=== PATIENT | male | born 1995 | race Caucasian/White ===

== ENCOUNTER 2019-05-01 23:39 | Emergency (ER) | payer OTHER ==
[2019-05-01 23:49] VITALS: BMI 39.0
--- NOTE | 2019-05-02 00:37 | PDOC ---
History of Present Illness - General Chief Complaint: Pain, Acute Stated Complaint: ABD PAIN Time Seen by Provider: 05/02/19 00:36 - History of Present Illness Initial Comments: The pt is a 24M w/ a history of GERD who presents for evaluation of LUQ abdominal pain since 1600 today. The pain started after eating a blackberry cake (that others had but do not share his symptoms). The pain is cramping/ burning, non-radiating, expanding, waxing/waning, associated with his reflux type symptoms, and was not alleviated by water. He tried taking Miralax today w / little relief. He feels better sitting rather than laying. He endorses associated nausea, diarrhea, streaks of blood in his stool. Denies fevers/chills, WALDRON, vision changes, chest pain, trouble breathing, dysuria , hematuria. Denies previous sexual activity PMH: GERD PSH: Denies Meds: Denies SH: Denies x3 05/02/19 00:46 Past History - Past Medical History Allergies/Adverse Reactions: Allergies Allergy/AdvReac Type Severity Reaction Status Date / Time No Known Allergies Allergy Verified 05/01/19 23:43 Home Medications: Ambulatory Orders Omeprazole 20 mg PO DAILY #15 tab 05/02/19 COPD: No - Suicide/Smoking/Psychosocial Hx Smoking History: Never smoked Have you smoked in the past 12 months: No Information on smoking cessation initiated: No Hx Alcohol Use: No Drug/Substance Use Hx: No Review of Systems - Review of Systems Able to Perform ROS?: Yes Comments:: GENERAL/CONSTITUTIONAL: No fever or chills. No weakness HEAD, EYES, EARS, NOSE AND THROAT: No change in vision. No ear pain or discharge. No sore throat CARDIOVASCULAR: No chest pain or shortness of breath RESPIRATORY: Denies cough, hemoptysi GASTROINTESTINAL: No vomiting, constipation GENITOURINARY: No dysuria, frequency, or change in urination MUSCULOSKELETAL: No joint or muscle swelling or pain. No neck pain SKIN: No rash NEUROLOGIC: No headache, vertigo, loss of consciousness, or change in strength/ sensation ENDOCRINE: No increased thirst. No abnormal weight change HEMATOLOGIC/LYMPHATIC: No anemia, easy bleeding, or history of blood clots ALLERGIC/IMMUNOLOGIC: No hives or skin allergy 05/02/19 00:37 Is the patient limited Tamazight proficient: No *Physical Exam - Vital Signs Last Vital Signs Temp Pulse Resp BP Pulse Ox 98.3 F 103 H 20 129/74 97 05/01/19 23:43 05/01/19 23:43 05/01/19 23:43 05/01/19 23:43 05/01/19 23:43 - Physical Exam Comments: GENERAL: Awake, alert, and oriented to person/place/time, in no acute distress HEAD: No signs of trauma, normocephalic, atraumatic EYES: PERRLA, EOMI, sclera anicteric, conjunctiva clear ENT: Hearing grossly normal, nares patent, oropharynx clear without exudates. No uvular deviation. Moist mucosa LUNGS: No distress, speaks in full sentences, clear to auscultation bilaterally HEART: Regular rate and rhythm, normal S1 and S2, no murmurs appreciated, peripheral pulses normal and equal bilaterally ABDOMEN: Soft, protuberant, LUQ TTP/lower abdominal TTP w/o rebound or guarding , normoactive bowel sounds EXTREMITIES: Normal inspection, Normal range of motion, no edema. No clubbing or cyanosis NEUROLOGICAL: Cranial nerves II through XII grossly intact. Normal speech, normal gait, no focal sensorimotor deficits SKIN: Warm, Dry, normal turgor, no rashes or lesions noted 05/02/19 00:37 ED Treatment Course - LABORATORY CBC & Chemistry Diagram: 05/02/19 01:14 05/02/19 02:09 Medical Decision Making - Medical Decision Making The pt is a 24M w/ a history of GERD who presents for evaluation of LUQ abdominal pain since 1600 today. Ddx includes PUD, GERD, consider nephrolithaisis, biliary disease, not likely vascular or cardiac in nature, not likely obstruction No anemia Lytes wnl LFTs unremarkable No F[place]ON Lipase wnl GI cocktail 05/02/19 03:22 US w/o evidence of cholelithiasis or cholecysititis Symptoms likely 2/2 gastritis v GERD v PUD Rx for omeprazole sent to pharmacy Pt tolerating PO and w/ resolution of abd pain Plan for D/C w/ GI f/u Discharge instructions and return precautions given Pt in agreement and verbalized understanding Dispo: home *DC/Admit/Observation/Transfer Diagnosis at time of Disposition: Abdominal pain Qualifiers: Abdominal location: epigastric Qualified Code(s): R10.13 - Epigastric pain Nausea and vomiting Qualifiers: Vomiting type: unspecified Vomiting Intractability: non-intractable Qualified Code(s): R11.2 - Nausea with vomiting, unspecified - Discharge Dispostion Disposition: HOME Condition at time of disposition: Improved Decision to Admit order: No - Prescriptions Prescriptions: Omeprazole 20 mg PO DAILY #15 tab.rap.dr - Referrals Referrals: Raman Jacobo MD [Primary Care Provider] - Isaac Bruce DO [Staff Physician] - - Patient Instructions Printed Discharge Instructions: DI for Gastroesophageal Reflux Disease (GERD) Additional Instructions: You were seen in the Emergency Department for evaluation of abdominal pain with nausea and vomiting. Your labs were unremarkable and your bedside ultrasound was negative for gallstones. A prescription for omeprazole was sent to the pharmacy that you specified, take as directed. Follow up with your primary care provider and the gastroenterology referral provided. Review the handout provided at discharge. Return to the Emergency Department if you develop fevers/ chills, chest pain, trouble breathing, inability to tolerate food, worsening pain, worsening symptoms, or any new/concerning symptoms. - Post Discharge Activity Forms/Work/School Notes: Back to Work
[2019-05-02] MEDS ORDERED: MAG HYDROX/AL HYDROX/SIMETH 30 ML UNIT-DOSE CUP PO ONE (00:44)
[2019-05-02] MEDS ORDERED: LACTATED RINGERS SOLUTION 1000 ML INFUS.BAG IV ONE (00:44)
[2019-05-02] MEDS ORDERED: ONDANSETRON 4 MG/2 ML VIAL IVPUSH ONE (00:44)
[2019-05-02] MEDS ORDERED: FAMOTIDINE 20 MG/50 ML IVPB 20 MG/50 ML MG IVPB ONE ×2 (00:44→01:03)
[2019-05-02] MEDS ORDERED: ACETAMINOPHEN 1000 MG/100 ML VIAL (NON FORMULARY) IVPB ONE (00:46)
[2019-05-02] MEDS ORDERED: MAG HYDROX/AL HYDROX/SIMETH 30 ML UNIT-DOSE CUP ONE (01:02)
[2019-05-02] MEDS ORDERED: ONDANSETRON 4 MG/2 ML VIAL ONE (01:04)
[2019-05-02] MEDS ORDERED: ACETAMINOPHEN INJECTION 100 ML IVPB ONE (01:14)
--- NOTE | 2019-05-02 01:18 | PDOC ---
Documentation entered by Indira Muro SCRIBE, acting as scribe for Katina Sheridan DO. Katina Sheridan DO: This documentation has been prepared by the Jina gomez Xhesika, SCRIBE, under my direction and personally reviewed by me in its entirety. I confirm that the documentation accurately reflects all work, treatment, procedures, and medical decision making performed by me. Attending Attestation - Resident Resident Name: [email or web address] - ED Attending Attestation I have performed the following: I have examined & evaluated the patient, The case was reviewed & discussed with the resident, I agree w/resident's findings & plan, Exceptions are as noted - HPI HPI: 05/02/19 01:19 The patient is a 24 year old male, with a significant PMH of GERD who presents to the emergency department with LUQ abdominal pain since 4pm. The patient states he was eating blackberry cake at the sudden onset of his abdominal pain which is described as cramping and burning sensation and is associated with his GERD symptoms. The patient states he drank water and took Miralax with mild to no relief. The patient states he endorses nausea, vomiting and diarrhea, secondary to his symptoms. The patient states his symptoms are aggravated when lying down and alleviated when sitting up. The patient denies chest pain, shortness of breath, headache and dizziness. Denies fever, chills, and constipation. Denies dysuria, frequency, urgency and hematuria. Allergies: NKA PCP: Raman Beltran - Physicial Exam PE: 05/02/19 01:20 GENERAL: Awake, alert, and fully oriented, in no acute distress HEAD: No signs of trauma EYES: PERRLA, EOMI, sclera anicteric, conjunctiva clear ENT: Auricles normal inspection, hearing grossly normal, nares patent, oropharynx clear without exudates. Moist mucosa NECK: Normal ROM, supple, no lymphadenopathy, JVD, or masses LUNGS: Breath sounds equal, clear to auscultation bilaterally. No wheezes, and no crackles HEART: Regular rate and rhythm, normal S1 and S2, no murmurs, rubs or gallops ABDOMEN: (+) epigastric tenderness. (+) LUQ tenderness. Soft, nontender, normoactive bowel sounds. No guarding, no rebound. No masses EXTREMITIES: Normal range of motion, no edema. No clubbing or cyanosis. No cords , erythema, or tenderness NEUROLOGICAL: Cranial nerves II through XII grossly intact. Normal speech, normal gait SKIN: Warm, Dry, normal turgor, no rashes or lesions noted. - Medical Decision Making 05/02/19 01:14 I, Dr. Katina Sheridan, DO, attest that this document has been prepared under my direction and personally reviewed by me in its entirety. I further attest, that it accurately reflects all work, treatment, procedures and medical decision -making performed by me. 05/02/19 01:14 a/p: 24yo male with n/v today and epigastric abd pain -had n/v in the ED and the pain resolved -burning sensation to chest and sour taste in mouth -hx of acid reflux, used to take omeprazole -bedside ultrasound of the RUQ-no gb wall thickening, no pericholecystic fluid, no gallstones, neg sonographic murphyx -bedside renal ultrasound - no hydro -will send labs, lipase, will medicate with gi meds -pt states after vomiting pain is almost totally resolved -will monitor and reassess 05/02/19 02:10 mildly elevated wbc chem hemolyzed, will repeat
[2019-05-02 01:33] LABS: BASO % 0.6 % (0-2.0); EOS % 0.8 % (0-4.5); HEMOGLOBIN 15.2 GM/dL (11.7-16.9); LYMPH % 11.7 % (8-40); MCH 26.6 pg (25.7-33.7); MCHC 32.4 g/dl (32.0-35.9); MEAN CELL VOLUME 82.2 fl (80-96); MEAN PLT VOLUME 8.6 fl (7.5-11.1); MONO % 7.4 % (3.8-10.2); NEUT % 79.5 % (42.8-82.8); PLATELET COUNT 280 K/MM3 (134-434); RBC 5.72 M/mm3 (4.00-5.60); RDW 14.7 % (11.9-15.9); WHITE BLOOD COUNT 13.5 K/mm3 (4.0-10.0)
[2019-05-02 02:15] LABS: URINE APPEARANCE CLEAR; URINE BILIRUBIN NEGATIVE (NEGATIVE); URINE COLOR YELLOW; URINE GLUCOSE (UA) NEGATIVE (NEGATIVE); URINE KETONE NEGATIVE (NEGATIVE); URINE LEUK ESTERASE NEGATIVE (NEGATIVE); URINE NITRITE NEGATIVE (NEGATIVE); URINE PROTEIN NEGATIVE (NEGATIVE)
[2019-05-02 02:50] LABS: ALBUMIN 3.9 g/dl (3.4-5.0); BILIRUBIN,TOTAL 0.7 mg/dL (0.2-1); BLOOD UREA NITROGEN 11.1 mg/dL (7-18); CALCIUM 8.4 mg/dL (8.5-10.1); CREATININE 0.8 mg/dL (0.55-1.3); POTASSIUM 3.5 mmol/L (3.5-5.1); TOT PROT 7.2 g/dl (6.4-8.2)
[2019-05-02 04:15] VITALS: BP 124/74; PULSE 81; TEMP 98.6
== END 2019-05-02 04:28 | disposition home or self-care (01) ==
LOC: JER 23:39
PROC: 3E033NZ Introduction of Analgesics, Hypnotics, Sedatives into Peripheral Vein, Percutaneous Approach (ICD-10-PCS; principal; 2019-05-01)
PROC: 3E033GC Introduction of Other Therapeutic Substance into Peripheral Vein, Percutaneous Approach (ICD-10-PCS; 2019-05-01)
PROC: 3E0337Z Introduction of Electrolytic and Water Balance Substance into Peripheral Vein, Percutaneous Approach (ICD-10-PCS; 2019-05-01)
DX: R10.13 Epigastric pain (principal); R11.2 Nausea with vomiting, unspecified
CPT/HCPCS: 36415; 80053; 81003; 83690; 85025; 99282-25; J0131

== ENCOUNTER 2024-04-06 10:29 | Emergency (ER) | payer SELFPAY ==
[2024-04-06 10:46] VITALS: TEMP 98.7; BMI 39.3
[2024-04-06 11:28] LABS: BASO % 0.9 % (0-2.0); EOS % 1.5 % (0-4.5); HEMATOCRIT 44.6 % (35.4-49); HEMOGLOBIN 14.8 GM/dL (11.7-16.9); LYMPH % 19.9 % (8-40); MCH 26.6 pg (25.7-33.7); MCHC 33.2 g/dl (32.0-35.9); MEAN CELL VOLUME 80.2 fl (80-96); MONO % 7.6 % (3.8-10.2); NEUT % 70.1 % (42.8-82.8); PLATELET COUNT 311 10^3/uL (134-434); RBC 5.57 M/mm3 (4.00-5.60); RDW 14.7 % (11.9-15.9); WHITE BLOOD COUNT 11.8 K/mm3 (4.0-10.0)
[2024-04-06 11:34] LABS: PROTHROMBIN TIME (PATIENT) 11.5 SEC (9.7-13.0)
[2024-04-06 11:37] LABS: ACTIVATED PTT 33.8 SECONDS (25.2-36.5)
[2024-04-06 11:46] LABS: CHLORIDE 104 mmol/L (98-107); POTASSIUM 3.9 mmol/L (3.5-5.1); SODIUM 138 mmol/L (136-145)
[2024-04-06 11:48] LABS: ANION GAP 7 mmol/L (4-13); CALCIUM 9.5 mg/dL (8.5-10.1); CO2 27 mmol/L (21-32); GLUCOSE,RANDOM 127 mg/dL (74-106)
[2024-04-06 11:49] LABS: BLOOD UREA NITROGEN 18.1 mg/dL (7-18)
[2024-04-06 11:51] LABS: SGPT/ALT 30 U/L (13-61)
[2024-04-06 11:52] LABS: SGOT/AST 29 U/L (15-37)
[2024-04-06 11:53] LABS: BILIRUBIN,TOTAL 0.5 mg/dL (0.2-1); TOT PROT 7.7 g/dl (6.4-8.2)
[2024-04-06 11:54] LABS: ALK PHOS 70 U/L (45-117)
[2024-04-06 14:21] VITALS: RESP 20
[2024-04-06 16:15] VITALS: BP 143/68; PULSE 89
== END 2024-04-06 16:15 | disposition home or self-care (01) ==
LOC: JER 10:29
DX: R07.9 Chest pain, unspecified (principal); R00.0 Tachycardia, unspecified; R11.0 Nausea; R42 Dizziness and giddiness; Z20.822 Contact with and (suspected) exposure to COVID-19
CPT/HCPCS: 0241U-QW; 36415; 71045-TC-FY; 71275-TC; 74174-TC; 80053; 82550; 83735; 84439; 84443; 84484; 85025; 85610; 85730; 86850; 86900; 86901; 93005; 93010; 99285-25

== ENCOUNTER 2024-04-16 08:32 | Emergency (ER) | payer OTHER ==
[2024-04-16 08:37] VITALS: BP 132/79; PULSE 84; RESP 18; TEMP 97.5; BMI 39.3
[2024-04-16] MEDS ORDERED: ACETAMINOPHEN INJECTION 100 ML IVPB ONE (09:56)
[2024-04-16] MEDS ORDERED: FAMOTIDINE 20 MG/50 ML IVPB 20 MG/50 ML MG IVPB ONE (09:56)
[2024-04-16] MEDS ORDERED: MAG HYDROX/AL HYDROX/SIMETH 30 ML UNIT-DOSE CUP ONE (09:56)
[2024-04-16] MEDS: ACETAMINOPHEN 1000 MG/100 ML BAG IVPB ONE (10:16)
[2024-04-16] MEDS: MAG HYDROX/AL HYDROX/SIMETH -MYLANTA- ORAL SUSPENSION PO ONE (10:16)
[2024-04-16] MEDS: FAMOTIDINE 20 MG/50 ML IVPB 20 MG/50 ML MG IVPB ONE (10:17)
[2024-04-16 10:36] LABS: BASO % 1.2 % (0-2.0); EOS % 1.3 % (0-4.5); HEMATOCRIT 46.3 % (35.4-49); HEMOGLOBIN 15.3 GM/dL (11.7-16.9); LYMPH % 19.5 % (8-40); MCH 26.5 pg (25.7-33.7); MEAN CELL VOLUME 80.3 fl (80-96); MEAN PLT VOLUME 8.1 fl (7.5-11.1); MONO % 7.6 % (3.8-10.2); NEUT % 70.4 % (42.8-82.8); PLATELET COUNT 321 10^3/uL (134-434); RBC 5.76 M/mm3 (4.00-5.60); RDW 14.7 % (11.9-15.9); WHITE BLOOD COUNT 10.4 K/mm3 (4.0-10.0)
[2024-04-16 10:51] LABS: POTASSIUM 4.1 mmol/L (3.5-5.1)
[2024-04-16 10:55] LABS: ALBUMIN 4.1 g/dl (3.4-5.0); CALCIUM 9.8 mg/dL (8.5-10.1)
[2024-04-16 10:56] LABS: BLOOD UREA NITROGEN 14.4 mg/dL (7-18)
[2024-04-16 10:58] LABS: CREATININE 0.7 mg/dL (0.55-1.3)
[2024-04-16 10:59] LABS: BILIRUBIN,TOTAL 0.3 mg/dL (0.2-1); TOT PROT 7.8 g/dl (6.4-8.2)
== END 2024-04-16 11:37 | disposition home or self-care (01) ==
LOC: JER 08:32
PROC: 3E033GC Introduction of Other Therapeutic Substance into Peripheral Vein, Percutaneous Approach (ICD-10-PCS; principal; 2024-04-16)
PROC: 3E033NZ Introduction of Analgesics, Hypnotics, Sedatives into Peripheral Vein, Percutaneous Approach (ICD-10-PCS; 2024-04-16)
DX: R07.89 Other chest pain (principal); R42 Dizziness and giddiness
CPT/HCPCS: 36415; 71046-TC-FY; 80053; 84484; 85025; 93005; 93010; 96365; 96375; 99285-25; J0131

== ENCOUNTER 2024-07-02 15:42 | Emergency (ER) | payer BC, OTHER ==
[2024-07-02 16:02] VITALS: BMI 39.3
[2024-07-02 17:36] LABS: BASO % 0.4 % (0-2.0); EOS % 1.2 % (0-4.5); HEMATOCRIT 44.3 % (35.4-49); HEMOGLOBIN 14.4 GM/dL (11.7-16.9); LYMPH % 14.7 % (8-40); MCH 26.4 pg (25.7-33.7); MCHC 32.5 g/dl (32.0-35.9); MEAN CELL VOLUME 81.4 fl (80-96); MEAN PLT VOLUME 8.1 fl (7.5-11.1); NEUT % 74.7 % (42.8-82.8); PLATELET COUNT 303 10^3/uL (134-434); RBC 5.44 M/mm3 (4.00-5.60); RDW 14.8 % (11.9-15.9)
[2024-07-02 18:32] LABS: POTASSIUM 4.1 mmol/L (3.5-5.1)
[2024-07-02 18:35] LABS: ALBUMIN 4.1 g/dl (3.4-5.0); BLOOD UREA NITROGEN 17.8 mg/dL (7-18); CALCIUM 9.1 mg/dL (8.5-10.1)
[2024-07-02 18:39] LABS: BILIRUBIN,TOTAL 0.5 mg/dL (0.2-1)
[2024-07-02 18:40] LABS: TOT PROT 7.6 g/dl (6.4-8.2)
[2024-07-02 19:31] VITALS: BP 150/75; PULSE 78; RESP 16; TEMP 97.8
[2024-07-02 19:32] LABS: HIV INTERPRETATION NEGATIVE (NEGATIVE)
== END 2024-07-02 19:30 | disposition home or self-care (01) ==
LOC: JER 15:42
DX: R07.89 Other chest pain (principal)
CPT/HCPCS: 36415; 80053; 83690; 83735; 84484; 85025; 86803; 87389; 93005; 93010; 99284-25